=== PATIENT | male | born 1990 | race Caucasian/White ===

== ENCOUNTER 2022-01-18 10:28 | Emergency (ER) | payer OTHER, MEDICAID, SELFPAY ==
[2022-01-18] VITALS (11 sets, daily range): BP systolic 116–132; BP diastolic 53–68; PULSE 80–97; RESP 15–28; TEMP 36.7; O2SAT 98–100; BMI 20.9
--- NOTE | 2022-01-18 13:05 | DI.RAD.S_ITS ---
PROCEDURE: XR CHEST 1V INDICATIONS: chest pain TECHNIQUE: One view of the chest was acquired. COMPARISON: [facility], , CHEST 2 VIEW, 08/02/2010, 12:38. FINDINGS: Surgical changes and devices: None. Lungs and pleura: Lungs are clear. No pleural effusions or pneumothorax. Mediastinum: Mediastinal contours appear normal. Heart size is normal. Bones and chest wall: No suspicious bony lesions. Overlying soft tissues appear unremarkable. IMPRESSION: No acute process. Dictated by: Mamadou Murillo M.D. on 01/18/2022 at 13:14 Approved by: Mamadou Murillo M.D. on 01/18/2022 at 13:15
[2022-01-18] MEDS: NICOTINE 21 MG PATCH TOP (13:34)
--- NOTE | 2022-01-18 14:12 | PC.NURSE ---
IV placed, but not enough blood for labs. Called lab to get more blood, but patient declining and asking for IV fluids first. Advised him that physician would need to see him first and he states he will just wait for the doctor. He states he feels he is very dehydrated and hasn't been drinking water. He is currently eating a sandwich that his grandmother got him. Asked him if he is nauseous and he states no. Gave him a cup of water and encouraged him to drink.
--- NOTE | 2022-01-18 14:55 | ED_ITS ---
HPI - Chest Pain General Chief Complaint: Chest Pain Stated Complaint: L Foot pain/swelling. Chest pain Time Seen by Provider: 01/18/22 13:41 Source: patient Mode of arrival: Ambulatory Limitations: no limitations History of Present Illness HPI narrative: This is a 31-year-old male with history of IV drug abuse, prior endocarditis, hepatitis-C, asthma and bipolar disorder. Patient states he had an injury to his left foot at some time unclear about the timing. He was at [facility] he states he left he initially is very reluctant to share whether he left Against Medical Advice or was discharged but states there was no plan in place. We are able to obtain records patient was had an MRI that shows no features of osteomyelitis but did show a small subcutaneous abscess with stress fracture and ligamentous injury that appeared old. Patient denies fevers, denies chills, he currently denies chest pain, shortness of breath, no nausea or vomiting, no other GI or urinary symptoms. Patient does answer questions but is not particularly forthcoming. He denies medical issues. He denies needing or supposed to take any medications. States he had surgery on his hand. States he has used IV drugs remotely, initially denies any illicit substances but then states he is used methamphetamines. He does smoke tobacco. States uses alcohol but denies frequent or heavy use. Patient states he left the hospital because he did not want to be there anymore. He came here because he thinks it is a better hospital but he is never been here before. When we discussed what brought him to the area he states he knows people locally. He defers meeting with our sr. social media & mobile manager today. Related Data Previous Rx's Medication Instructions Recorded Fluticasone Propionate (FLONASE) 1 spray intranasal QDAY ##1 03/29/11 fluticasone propionate 110 1 puff INH BIDRT ##1 03/29/11 mcg/actuation HFA aerosol inhaler (Flovent HFA) citalopram 20 mg tablet (Celexa) 40 mg PO QDAY ##60 04/12/11 albuterol sulfate 90 mcg/actuation 0.09 mg IH Q4H ##1 09/20/11 aerosol inhaler (Ventolin HFA) Allergies Allergy/AdvReac Type Severity Reaction Status Date / Time cefazolin [From Anc] Allergy Hives Verified 01/18/22 13:21 codeine Allergy Rash Verified 01/18/22 13:27 methamphetamine Allergy Verified 01/18/22 13:27 morphine Allergy Hallucinati Verified 01/18/22 13:27 ng shrimp Allergy Hives Verified 01/18/22 13:27 walnut Allergy Verified 01/18/22 13:27 hydrocodone AdvReac Vomiting Verified 01/18/22 13:27 Review of Systems Review of Systems ROS Unobtainable: All systems reviewed & are unremarkable except as noted in HPI and below Patient History Social History Smoking Status: Current every day smoker Smoking Status: Current every day smoker tobacco type: cigarettes Substance Use Type: opiates Exam Narrative Exam Narrative: GEN: Thin slightly disheveled male, alert and oriented x 3, patient appears to be in mild distress. HEENT: Atraumatic, pupils are equal round reactive to light, extraocular movements are intact, nares are clear, moist mucous membranes. HEART: Regular rate and rhythm without murmur, clicks, rubs. Pulses are equal in upper and lower extremities LUNGS:Lungs clear to auscultation, no wheezes, rales, crackles, chest moves symmetrically, no tachypnea accessory muscle use ABD:bowel sounds normal, soft, non-tender, no guarding, rebound, rigidity, no masses noted, no hepatosplenomegaly :No CVA tenderness MSCL: Non-tender, no muscle atrophy, muscles strength 5/5 upper and lower extremities, full range of motion NEURO:CN 2-12 intact, sensation normal SKIN: Patient has some mild erythema over the great toe and follow-up the foot on the left. No fluctuance, slightly warm, there is no fluid collection easily palpable. Patient his mildly tender to touch. Cap refills less than 2 seconds bilateral lower extremities. With 2+ dorsalis pedis bilaterally. Has some small abrasions that do not appear infected over the dorsum of the foot. Patient has normal sensation throughout. Initial Vital Signs Initial Vital Signs: Vital Signs Temperature 98.1 F 01/18/22 10:51 Pulse Rate 85 01/18/22 10:51 Respiratory Rate 20 01/18/22 10:51 Blood Pressure 118/56 L 01/18/22 10:51 Pulse Oximetry 98 01/18/22 10:51 Oxygen Delivery Method 01/18/22 10:51 Course Orders Ordered: ED Orders 01/18/22 13:05 XR chest 1V Stat EKG-12 Lead Stat 01/18/22 15:49 XR foot LT min 3V Stat 01/18/22 16:35 CBC Auto Diff [Complete Blood Count AUTO DIFF] Stat CMP [Comprehensive Metabolic Panel] Stat CRP [C-Reactive Protein Quant] Stat ESR [Erythrocyte Sedimentation Rate] Stat Lactate (Lactic Acid) Stat Lipase Stat MAG [Magnesium] Stat Procalcitonin Stat 01/18/22 16:42 Blood Culture Stat Discontinued Medications Sodium Chloride (Normal Saline 0.9%) 1,000 mls @ 1,000 mls/hr IV BOLUS ONE Stop: 01/18/22 16:14 Last Infusion: 01/18/22 17:42 Dose: 0 mls/hr Documented By: Admin: 01/18/22 15:16 Dose: 1,000 mls/hr Documented By: LUIS Vancomycin HCl/Dextrose (Vancomycin) 1,500 mg in 300 mls @ 200 mls/hr IV NOW ONE Stop: 01/18/22 17:18 Last Admin: 01/18/22 16:30 Dose: Not Given Documented By: ALLISON Nicotine (Nicotine 21 Mg Patch) 21 mg TOP NOW ONE Stop: 01/18/22 13:07 Last Admin: 01/18/22 13:34 Dose: 21 mg Documented By: LUIS Consultations Consultation #1: Dr. Meghann Arboleda, reviewed labs findings from today, patient's recent MRI findings and exam findings with patient's past medical history. She recommends oral antibiotics follow-up outpatient with them in the office for further treatment. Vital Signs Vital signs: Vital Signs - 8 hr 01/18/22 13:22 01/18/22 13:30 01/18/22 13:30 Pulse Rate 80 81 Respiratory Rate 27 H Blood Pressure 119/68 Pulse Oximetry 98 98 01/18/22 14:00 01/18/22 14:01 01/18/22 14:01 Pulse Rate 82 86 Respiratory Rate 27 H 24 Blood Pressure 117/61 Pulse Oximetry 99 99 01/18/22 14:30 01/18/22 15:00 01/18/22 15:00 Pulse Rate 86 90 Respiratory Rate 18 18 Blood Pressure 124/56 L Pulse Oximetry 100 99 01/18/22 16:38 01/18/22 15:30 01/18/22 15:30 Pulse Rate 97 H 89 Respiratory Rate 28 H Blood Pressure 132/66 Pulse Oximetry 99 01/18/22 16:00 01/18/22 16:00 01/18/22 16:30 Pulse Rate 91 H 86 Respiratory Rate 15 Blood Pressure 116/53 L Pulse Oximetry 98 98 MDM - Chest Pain Lab Data Result diagrams: 01/18/22 16:35 01/18/22 16:35 Labs: Lab Results 01/18/22 01/18/22 01/18/22 Range/Units 16:35 16:35 16:35 WBC 6.5 (4.5-11.0) X10^3/uL RBC 3.86 L (4.5-5.9) X10^6/uL Hgb 12.6 L (13.5-17.5) g/dL Hct 36.5 L (41-53) % MCV 94.5 (80-100) fL MCH 32.7 (26-34) PG MCHC 34.6 (30-36) % RDW 13.3 (11.6-14.8) % Plt Count 247 (150-400) X10^3/uL Neut % (Auto) 48.2 L (50-75) % Lymph % (Auto) 39.2 (25-40) % [place] % (Auto) 7.8 (3-14) % Eos % (Auto) 4.1 H (2-4) % Baso % (Auto) 0.7 (0-2) % Neut # (Auto) 3200 (0694-4405) /uL Lymph # (Auto) 2600 (5672-9590) /uL [place] # (Auto) 500 (0-900) /uL Eos # (Auto) 300 (0-450) /uL Baso # (Auto) 0 (0-100) /uL ESR 6 (0-15) MM/HR Sodium (137-145) mmol/L Potassium (3.4-5.1) mmol/L Chloride (98-107) mmol/L Carbon Dioxide (22-32) mmol/L BUN (9-20) mg/dL Creatinine (0.66-1.25) mg/dL Estimated GFR (>60) mL/min BUN/Creatinine Ratio (6-22) Glucose (70-100) mg/dL Lactate (0.7-2.1) mmol/L Calcium (8.4-10.2) mg/dL Magnesium (1.6-2.3) mg/dL Total Bilirubin (0.2-1.3) mg/dL AST (17-59) IU/L ALT (<50) IU/L Alkaline Phosphatase (38-126) U/L C-Reactive Protein 2.0 H (<1.0) mg/dL Total Protein (6.3-8.2) g/dL Albumin (3.5-5.0) g/dL Globulin (1.7-4.1) g/dL Albumin/Globulin Ratio (1.0-2.8) Lipase (23-300) U/L Procalcitonin 0.09 (<0.5) ng/mL 01/18/22 01/18/22 Range/Units 16:35 16:35 WBC (4.5-11.0) X10^3/uL RBC (4.5-5.9) X10^6/uL Hgb (13.5-17.5) g/dL Hct (41-53) % MCV (80-100) fL MCH (26-34) PG MCHC (30-36) % RDW (11.6-14.8) % Plt Count (150-400) X10^3/uL Neut % (Auto) (50-75) % Lymph % (Auto) (25-40) % [place] % (Auto) (3-14) % Eos % (Auto) (2-4) % Baso % (Auto) (0-2) % Neut # (Auto) (9502-1490) /uL Lymph # (Auto) (9288-0110) /uL [place] # (Auto) (0-900) /uL Eos # (Auto) (0-450) /uL Baso # (Auto) (0-100) /uL ESR (0-15) MM/HR Sodium 138 (137-145) mmol/L Potassium 3.6 (3.4-5.1) mmol/L Chloride 103 (98-107) mmol/L Carbon Dioxide 30 (22-32) mmol/L BUN 17 (9-20) mg/dL Creatinine 0.70 (0.66-1.25) mg/dL Estimated GFR > 60 (>60) mL/min BUN/Creatinine Ratio 24.3 H (6-22) Glucose 124 H (70-100) mg/dL Lactate 1.6 (0.7-2.1) mmol/L Calcium 7.9 L (8.4-10.2) mg/dL Magnesium 1.6 (1.6-2.3) mg/dL Total Bilirubin 0.2 (0.2-1.3) mg/dL AST 31 (17-59) IU/L ALT 23 (<50) IU/L Alkaline Phosphatase 76 (38-126) U/L C-Reactive Protein (<1.0) mg/dL Total Protein 6.1 L (6.3-8.2) g/dL Albumin 3.1 L (3.5-5.0) g/dL Globulin 3.0 (1.7-4.1) g/dL Albumin/Globulin Ratio 1.0 (1.0-2.8) Lipase 56 (23-300) U/L Procalcitonin (<0.5) ng/mL Imaging Data outside MRI foot: Radiologist's Impression: Date of MRI 01/16/22 @ [facility]. No signs of osteomyelitis but linear edema in the posterior process of the calcaneus near the lateral wall of the calcaneus and a subtle sclerotic line consistent with a small stress fracture in the calcaneus the fracture line is incomplete, chronic avulsive injury at the tip of the fibula and small rim enhancing fluid collection along the plantar aspect of the 2nd metatarsal in the subcutaneous fat measuring 7 x 7 x 10 mm consistent with a small subcutaneous abscess in the superficial soft tissues and small joint effusion at the great toe MTP, no findings of synovitis.? There are some chronic tears of the deep deltoid ligament and ATFL and CFL.? There is also increased fluid at the peroneal tendon sheath compatible with tenosynovitis. Extremity x-ray #1: Radiologist's Impression: [address] [address] XRay Report Signed Patient: David Avila MR#: [id number] : 1990 Acct:[id number] Age/Sex: 31 / M Date of Service: 01/18/22 Loc: ED Accession Number: [id number] ?? Procedure: XR foot LT min 3V Ordering Provider: Negrita Schreiber D.O. PROCEDURE:? XR FOOT LT MIN 3V ? INDICATIONS:? infection foot ? TECHNIQUE:? Three views of the foot were acquired.? ? COMPARISON:? None. ? FINDINGS:? ? Bones:? No fractures or dislocations.? No suspicious bony lesions.? ? Soft tissues:? No tibiotalar joint effusion.? Achilles tendon appears normal.? There is no radiodense foreign body or suspicious soft tissue gas. ? ? IMPRESSION:? Intact left foot. ? ? Dictated by: Miranda Mckeon M.D. on 01/18/2022 at 16:41 ? ? Approved by: Miranda Mckeon M.D. on 01/18/2022 at 16:42?? Chest x-ray: Radiologist's Impression: Close Foot X-Ray (Signed) Miranda Mckeon - 01/18/22 Chest X-Ray (Signed) Mamadou Murillo - 01/18/22 [facility]?[place] [address] XRay Report Signed Patient: David Avila MR#: [id number] : 1990 Acct:[id number] Age/Sex: 31 / M Date of Service: 01/18/22 Loc: ED Accession Number: [id number] ?? Procedure: XR chest 1V Ordering Provider: Negrita Schreiber D.O. PROCEDURE:? XR CHEST 1V ? INDICATIONS:? chest pain ? TECHNIQUE:? One view of the chest was acquired.? ? COMPARISON:? [facility], CHEST 2 VIEW, 08/02/2010, 12:38. ? FINDINGS:? ? Surgical changes and devices:? None.? ? Lungs and pleura:? Lungs are clear.? No pleural effusions or pneumothorax.? ? Mediastinum:? Mediastinal contours appear normal.? Heart size is normal.? ? Bones and chest wall:? No suspicious bony lesions.? Overlying soft tissues appear unremarkable.? ? IMPRESSION:? No acute process. ? ? Dictated by: Mamadou Murillo M.D. on 01/18/2022 at 13:14 ? ? Approved by: Mamadou Murillo M.D. on 01/18/2022 at 13:15?? ECG Data Attestation: I personally reviewed and interpreted this ECG as follows: Interpretation: Sinus rhythm rate 82 VT 142 QRS 96 QTC of 436. Patient has diffuse ST elevation in 2 3 AVF as well as Q-wave present. Patient has some mild elevation in lateral leads as well. No reciprocal changes appreciated. MDM Narrative Medical decision making narrative: This is a 31-year-old male with history of endocarditis, multiple hospital visits sounds like he may not have been fully treated. Was recently at [facility] yesterday left overnight Against Medical Advice had been receiving IV antibiotics. Patient had MRI of the foot which was negative for osteomyelitis but showed possible small subcutaneous abscess with stress fracture and some ligamentous change. Podiatry was being consulted but had not seen the patient when he left. Presents here he does not appear to be septic, patient refused lab work initially had chest x-ray, foot x-ray is a quick screening exam a lthough unlikely to supervisor policy change clerks. EKG shows some diffuse ST elevation and with his IV drug history and endocarditis history discussed with patient the necessity of obtaining blood work to evaluate CBC, ESR, CRP, troponin, lactate and procalcitonin. Patient is denying any chest pain or shortness of breath or other symptoms consistent with endocarditis. Labs overall reassuring although elevated CRP. Patient's MRI at outside facility in the last several days was negative for osteomyelitis showed a stress fracture and some ligamentous injuries but no other significant change. Discussed with our local orthopedic surgeon who recommends oral antibiotics and outpatient follow-up. Patient left Against Medical Advice prior to me discussing with the locall orthopedic surgeon and these recommendations were not able to be shared with them. Discharge Plan Departure Patient Disposition: Left Against Medical Advice Clinical Impression: Left against medical advice Prescriptions: No Action fluticasone propionate [Flovent HFA] 12 GM HFA aerosol inhaler 1 puff INH BIDRT Qty: 1 3RF Fluticasone Propionate (FLONASE) 1 spray Intranasal QDAY Qty: 1 3RF citalopram [Celexa] 20 MG tablet 40 mg PO QDAY Qty: 60 1RF albuterol sulfate [Ventolin HFA] 90 MCG/PUFF HFA aerosol inhaler 0.09 mg IH Q4H Qty: 1 3RF Stand Alone Forms: Against Medical Advice
[2022-01-18] MEDS: SODIUM CHLORIDE 0.9% 1,000 ML 1000 ML IV (15:16)
--- NOTE | 2022-01-18 15:49 | DI.RAD.S_ITS ---
PROCEDURE: XR FOOT LT MIN 3V INDICATIONS: infection foot TECHNIQUE: Three views of the foot were acquired. COMPARISON: None. FINDINGS: Bones: No fractures or dislocations. No suspicious bony lesions. Soft tissues: No tibiotalar joint effusion. Achilles tendon appears normal. There is no radiodense foreign body or suspicious soft tissue gas. IMPRESSION: Intact left foot. Dictated by: Miranda Mckeon M.D. on 01/18/2022 at 16:41 Approved by: Miranda Mckeon M.D. on 01/18/2022 at 16:42
[2022-01-18 16:57] LABS: Add Manual Diff / Slide Review NO; Basophils Absolute Auto 0 /uL (0-100); Basophils Percent Auto 0.7 % (0-2); Eosinophils Absolute Auto 300 /uL (0-450); Eosinophils Percent Auto 4.1 % (2-4); Hematocrit 36.5 % (41-53); Hemoglobin 12.6 g/dL (13.5-17.5); Lymphocytes Absolute Auto 2600 /uL (1100-4500); Lymphocytes Percent Auto 39.2 % (25-40); Mean Corpuscular HGB Conc 34.6 % (30-36); Mean Corpuscular Hemoglobin 32.7 PG (26-34); Mean Corpuscular Volume 94.5 fL (80-100); Monocytes Absolute Auto 500 /uL (0-900); Monocytes Percent Auto 7.8 % (3-14); Neutrophils Absolute Auto 3200 /uL (1500-7000); Neutrophils Percent Auto 48.2 % (50-75); Platelet Count 247 X10^3/uL (150-400); Red Blood Cell Count 3.86 X10^6/uL (4.5-5.9); Red Cell Distribution Width 13.3 % (11.6-14.8); White Blood Cell Count 6.5 X10^3/uL (4.5-11.0)
[2022-01-18 17:10] LABS: Lactate (Lactic Acid) 1.6 mmol/L (0.7-2.1)
[2022-01-18 17:12] LABS: Alanine Aminotransferase 23 IU/L (<50); Albumin 3.1 g/dL (3.5-5.0); Alkaline Phosphatase 76 U/L (38-126); Aspartate Aminotransferase 31 IU/L (17-59); BUN Creatinine Ratio 24.3 (6-22); Bilirubin Total 0.2 mg/dL (0.2-1.3); Blood Urea Nitrogen 17 mg/dL (9-20); Calcium 7.9 mg/dL (8.4-10.2); Carbon Dioxide 30 mmol/L (22-32); Chloride 103 mmol/L (98-107); Estimated Glomerular Filt Rate > 60 mL/min (>60); Glucose 124 mg/dL (70-100); HEMOLYSIS 16 (0-50); Lipase 56 U/L (23-300); Magnesium 1.6 mg/dL (1.6-2.3); Potassium 3.6 mmol/L (3.4-5.1); Sodium 138 mmol/L (137-145); Total Protein 6.1 g/dL (6.3-8.2)
[2022-01-18 17:21] LABS: Erythrocyte Sedimentation Rate 6 MM/HR (0-15)
[2022-01-18 17:27] LABS: Procalcitonin 0.09 ng/mL (<0.5)
== END 2022-01-18 17:37 | disposition left against medical advice (07) ==
PROVIDERS: Emergency Provider Emergency Medicine
DX: M79.672 Pain in left foot (principal); R07.9 Chest pain, unspecified; R79.89 Other specified abnormal findings of blood chemistry; L03.116 Cellulitis of left lower limb
CPT/HCPCS: 36415; 71045; 73630; 80053; 83605; 83690; 83735; 84145; 85025; 85651; 86140; 87040; 93005; 99283; 99284

== ENCOUNTER 2022-01-18 17:50 | Emergency (ER) | payer OTHER, MEDICAID, SELFPAY ==
[2022-01-18 19:07] VITALS: BP 118/66; PULSE 90; RESP 20; TEMP 36.9; O2SAT 98; BMI 20.7
--- NOTE | 2022-01-18 19:12 | PC.NURSE ---
called patient for triage. he left and apparently came back. said he needed fresh air . found patient sleeping on couch.
--- NOTE | 2022-01-18 20:49 | ED.RECABL ---
HPI - Recheck/Abnormal Lab/Rx General Chief Complaint: Recheck/Abnormal Lab/Rx Stated Complaint: INFECTION OF LEFT FOOT Time Seen by Provider: 01/18/22 20:47 Source: patient Mode of arrival: Ambulatory History of Present Illness HPI narrative: Patient is a 31-year-old male who was seen in the emergency department earlier today. Has had a fairly extensive workup recently for concerns of a left foot infection. Please see the note from earlier today for complete synopsis of this. Was an MRI that was reviewed is his visit earlier today which did not show any signs of osteomyelitis. A discussion was had with the emergency provider at that time with Orthopedics and the decision was made to start the patient on antibiotics and have him follow-up as an outpatient. Prior to this discussion with the patient he did elope from that visit. There was no discussion about the plan and he was not given any antibiotics. He returns to the emergency department for continued evaluation and treatment. There has been no changes in his health since he was seen earlier today. Related Data Previous Rx's Medication Instructions Recorded Fluticasone Propionate (FLONASE) 1 spray intranasal QDAY ##1 03/29/11 fluticasone propionate 110 1 puff INH BIDRT ##1 03/29/11 mcg/actuation HFA aerosol inhaler (Flovent HFA) citalopram 20 mg tablet (Celexa) 40 mg PO QDAY ##60 04/12/11 albuterol sulfate 90 mcg/actuation 0.09 mg IH Q4H ##1 09/20/11 aerosol inhaler (Ventolin HFA) doxycycline hyclate 100 mg tablet 100 mg PO BID 10 days #20 tabs 01/18/22 Allergies Allergy/AdvReac Type Severity Reaction Status Date / Time cefazolin [From Anc] Allergy Hives Verified 01/18/22 13:21 codeine Allergy Rash Verified 01/18/22 13:27 methamphetamine Allergy Verified 01/18/22 13:27 morphine Allergy Hallucinati Verified 01/18/22 13:27 ng shrimp Allergy Hives Verified 01/18/22 13:27 walnut Allergy Verified 01/18/22 13:27 hydrocodone AdvReac Vomiting Verified 01/18/22 13:27 Review of Systems Constitutional Constitutional: Reports system reviewed and no additional complaints, except as documented Cardiovascular Cardiovascular: Reports system reviewed and no additional complaints, except as documented Musculoskeletal Musculoskeletal: Reports system reviewed and no additional complaints, except as documented Integumentary/Breasts Skin/Breast: Reports system reviewed and no additional complaints, except as documented Neurologic Neurologic: Reports system reviewed and no additional complaints, except as documented Patient History Social History Smoking Status: Current every day smoker Smoking Status: Current every day smoker tobacco type: cigarettes Substance Use Type: opiates Exam Initial Vital Signs Initial Vital Signs: Vital Signs Temperature 98.5 F 01/18/22 19:07 Pulse Rate 90 01/18/22 19:07 Respiratory Rate 20 01/18/22 19:07 Blood Pressure 118/66 01/18/22 19:07 Pulse Oximetry 98 01/18/22 19:07 Oxygen Delivery Method 01/18/22 19:07 Const General: disheveled HENMT Head: normal to inspection and normocephalic Resp Effort & Inspection: normal respiratory effort Cardio Pulses: dorsalis pedis present on the left Skin Other: Patient has mild swelling of the left foot with some areas of crusting. Very mild erythema. No ulcerations. Neuro General: patient alert, patient awake and moves all extremities Course Orders Ordered: Discontinued Medications Doxycycline Hyclate (Doxycycline Hyclate 100 Mg Tablet) 100 mg PO NOW ONE Stop: 01/18/22 20:51 Last Admin: 01/18/22 20:56 Dose: 100 mg Documented By: Vital Signs Vital signs: Vital Signs - 8 hr 01/18/22 21:10 Pulse Rate 86 Respiratory Rate 19 Blood Pressure 127/78 Pulse Oximetry 99 Oxygen Delivery Method Room Air MDM - Recheck/Abnormal Lab/Rx MDM Narrative Medical decision making narrative: No radiologic studies nor labs required during this visit as they were performed earlier in the day. Patient was given a dose of doxycycline here in the ER. He was sent home with a prescription for doxycycline was sent to the pharmacy of his choice. He was instructed that he needed to picker operator this medication and start taking it as directed. He was also given follow-up instructions for orthopedics. He expressed understanding that he needed to follow-up with orthopedics. He was given return precautions. He expressed understanding and agreement. Discharge Plan Departure Patient Disposition: Home Clinical Impression: Cellulitis Instructions: DI for Cellulitis -- Adult Activity Restrictions/Additional Instructions: It is important that you start taking the antibiotics as directed. It was electronically transmitted to [facility] here in [place]. Your next dose will be Tuesday01/19/22 in the morning. Please take it as directed. Also contact the orthopedic doctors at the number provided below is you do need follow-up. Return to the emergency department for any new or worsening symptoms. Prescriptions: New doxycycline hyclate 100 mg tablet 100 mg PO BID 10 Days Qty: 20 0RF No Action fluticasone propionate [Flovent HFA] 12 GM HFA aerosol inhaler 1 puff INH BIDRT Qty: 1 3RF Fluticasone Propionate (FLONASE) 1 spray Intranasal QDAY Qty: 1 3RF citalopram [Celexa] 20 MG tablet 40 mg PO QDAY Qty: 60 1RF albuterol sulfate [Ventolin HFA] 90 MCG/PUFF HFA aerosol inhaler 0.09 mg IH Q4H Qty: 1 3RF Referrals: Meghann Arboleda MD [Physician] - Visit Report Forms: Patient Portal/API
[2022-01-18] MEDS: DOXYCYCLINE HYCLATE 100 MG TABLET PO (20:56)
[2022-01-18 21:10] VITALS: BP 127/78; PULSE 86; RESP 19; O2SAT 99
== END 2022-01-18 21:00 | disposition home or self-care (01) ==
PROVIDERS: Emergency Provider Emergency Medicine
DX: L03.116 Cellulitis of left lower limb (principal)
CPT/HCPCS: 99283

== ENCOUNTER 2023-10-25 03:41 | Emergency (ER) | payer OTHER, MEDICAID, SELFPAY ==
[2023-10-25 03:41] VITALS: BP 134/71; PULSE 102; RESP 18; TEMP 37.3; O2SAT 99
--- NOTE | 2023-10-25 03:50 | ED.GENADULT ---
HPI - General Adult General Chief complaint: Weakness Stated complaint: Dehydration Time Seen by Provider: 10/25/23 03:43 History of Present Illness HPI narrative: 33-year-old gentleman with a history of opioid use disorder at 1 point was on methadone maintenance and has relapsed. His drug of choice is opiates but also uses methadone. Has a history of endocarditis back in November of 2022. He states that he relapsed at 1 point and can not be clear on dates. He currently does not have stable housing. Brought in by medics saying that he ?wants to get his medical shit cleaned up to go to clean and sober housing in a few hours?. It sounds like he has recently spent time in long-term and has all of his legal issues at this point sort it out. He is tangential, non focused not clear on what he actually wants, which hospital he is at or where he is planning to go. He states that he wanted to ?come up this way? and go to clean and sober housing ?here?. He has no specific plan and certainly does not have a definitive idea of where he would like to be. He has not complaining of fevers or chills. He complains that his feet are sore due to chronically being wet and macerated. Was seen at [facility] yesterday with that as his primary complaint. He was seen in [place] in [place] on October 16 for opioid use withdrawal and detox. He feels that he is dehydrated because he does not want to drink any water and was requesting IV fluids and antibiotics. He is not complaining of headache, cough, palpitations. Related Data Previous Rx's Medication Instructions Recorded Fluticasone Propionate (FLONASE) 1 spray intranasal QDAY ##1 03/29/11 fluticasone propionate 110 1 puff INH BIDRT ##1 03/29/11 mcg/actuation HFA aerosol inhaler (Flovent HFA) citalopram 20 mg tablet (Celexa) 40 mg (2 x 20 mg) PO QDAY ##60 04/12/11 albuterol sulfate 90 mcg/actuation 0.09 mg IH Q4H ##1 09/20/11 aerosol inhaler (Ventolin HFA) Allergies Allergy/AdvReac Type Severity Reaction Status Date / Time cefazolin [From Anc] Allergy Hives Verified 01/18/22 13:21 codeine Allergy Rash Verified 01/18/22 13:27 methamphetamine Allergy Verified 01/18/22 13:27 morphine Allergy Hallucinati Verified 01/18/22 13:27 ng shrimp Allergy Hives Verified 01/18/22 13:27 walnut Allergy Verified 01/18/22 13:27 hydrocodone AdvReac Vomiting Verified 01/18/22 13:27 Review of Systems Review of Systems Narrative: Pertinent positive and negative findings as per HPI Patient History Social History Smoking Status: Current every day smoker Smoking Status: Current every day smoker tobacco type: cigarettes Substance Use Type: opiates Exam Initial Vital Signs Initial Vital Signs: Vital Signs Temperature 99.2 F 10/25/23 03:41 Pulse Rate 102 H 10/25/23 03:41 Respiratory Rate 18 10/25/23 03:41 Blood Pressure 134/71 10/25/23 03:41 Pulse Oximetry 99 10/25/23 03:41 Oxygen Delivery Method Room Air 10/25/23 03:41 General: Chronically ill-appearing, almost cachectic HEENT: Moist mucous membranes, sunburn back of his neck Neck: No JVD, supple Respiratory: Lungs with bibasilar crackles. Cardiac: No murmurs with careful auscultation. He is slightly tachycardic Abdomen: Soft, nontender, , no flank pain Skin: Pale, bruises in various stages of healing, track majano Neurologic: Grossly neurologically intact with no obvious asymmetries or abnormalities Extremities: Feet with macerated bottoms of the feet, no obvious infection, seems to be improving. Dry socks were given Psych: Poor insight, poor overall understanding Course Vital Signs Vital signs: Vital Signs - 8 hr 10/25/23 03:41 Temperature 99.2 F Pulse Rate 102 H Respiratory Rate 18 Blood Pressure 134/71 Pulse Oximetry 99 Oxygen Delivery Method Room Air Medical Decision Making [facility] Narrative Medical decision making narrative: CC: ?I want IV fluids and antibiotics? Complicating co-morbidities: Currently appears to be intoxicated, poor overall insight into health. Expecting go to clean and sober housing after he sees his kids this morning. Completely unrealistic expectations. Believes his kids are in [place] but can not completely confirm this. Has no specific goal for clean and sober housing other than the idea Data collected from: patient Social determinants of health that may influence the patients condition: Polysubstance use, currently on housed Medical records reviewed: [facility] reviewed with multiple ER visits summarized in the HPI Differential considered: Opioid intoxication, opioid withdrawal, methamphetamine use, cachexia, infection Exam documented above, pertinent findings include: Patient is cachectic, chronically ill-appearing, no murmurs appreciated, no obvious cellulitis, maceration to his feet that does seem to be slightly improving with dry socks. He is disorganized in his thinking in his speech, speech is not pressured, poor eye contact overall Discussion: 33-year-old gentleman who has no place to sleep tonight requesting ?IV fluids and IV antibiotics? no recent fevers, currently homeless, plan is unclear and he is not interested in inpatient detox currently. He is able to eat and drink and is offered a snack as well as water and juice. At this point there is no medical indication for additional workup. Discussed the option inpatient detox in multiple different ways and he is interested only in ?getting to see my kids in a couple of hours and getting to clean and sober housing without seeming to understand the detox and getting to sober prior to both of those events. Discharge Plan Departure Patient Disposition: Home Clinical Impression: Polysubstance (including opioids) dependence, daily use Activity Restrictions/Additional Instructions: I appreciate very much that you want to get to see your children and go to clean and sober housing. I think this is a wonderful goal. Unfortunately, you have a few more steps in terms of getting to sobriety and through recovery to be able to achieve that goal. You had mentioned seeking care in [place]. They do have a inpatient detox facility called [facility] [address], [place] [address] They do not have space availalbe tonight, but I would encourage you to follow up in contact them tomorrow. [facility] [address], [place] [address] [phone] [facility], clean and sober living [address], [place] - [phone] In the emergency room tonight you are given water juice a sandwich. Dry socks. At this time there is no medical indication for additional workup. I wish you luck in getting to sober so that you can spend more time with your children. Prescriptions: No Action fluticasone propionate [Flovent HFA] 12 GM HFA aerosol inhaler 1 puff INH BIDRT Qty: 1 3RF Fluticasone Propionate (FLONASE) 1 spray Intranasal QDAY Qty: 1 3RF citalopram [Celexa] 20 MG tablet 40 mg PO QDAY Qty: 60 1RF albuterol sulfate [Ventolin HFA] 90 MCG/PUFF HFA aerosol inhaler 0.09 mg IH Q4H Qty: 1 3RF Stand Alone Forms: Patient Portal/API
--- NOTE | 2023-10-25 03:54 | PC.NURSE ---
Pt given juice and crackers, water and turkey sandwich. Pt eating and drinking with no issues.
[2023-10-25 04:04] VITALS: BMI 25.8
[2023-10-25 04:46] VITALS: BP 135/78; PULSE 85; RESP 19; TEMP 36.4; O2SAT 98
== END 2023-10-25 04:35 | disposition home or self-care (01) ==
PROVIDERS: Emergency Provider Emergency Medicine
DX: F11.20 Opioid dependence, uncomplicated (principal)
CPT/HCPCS: 99281

== ENCOUNTER 2023-10-25 08:42 | Emergency (ER) | payer OTHER, MEDICAID, SELFPAY ==
[2023-10-25 08:56] VITALS: BP 118/67; PULSE 90; RESP 16; TEMP 37.1; O2SAT 99
--- NOTE | 2023-10-25 09:03 | ED_ITS ---
HPI - Skin/Abscess/Foreign Bdy General Stated complaint: Pain in both feet Time Seen by Provider: 10/25/23 08:44 History of Present Illness HPI narrative: 33-year-old male with history of polysubstance abuse presents for evaluation of bilateral foot pain. Seen less than 12 hours ago in the emergency department for help with getting sober and living situations. He was medically evaluated and discharged with resources and clean socks. Patient is seen by myself earlier today in the cafeteria getting coffee. He checks in today for bilateral foot pain. He states that his feet are damp and he was requesting a cream. Related Data Previous Rx's Medication Instructions Recorded Fluticasone Propionate (FLONASE) 1 spray intranasal QDAY ##1 03/29/11 fluticasone propionate 110 1 puff INH BIDRT ##1 03/29/11 mcg/actuation HFA aerosol inhaler (Flovent HFA) citalopram 20 mg tablet (Celexa) 40 mg (2 x 20 mg) PO QDAY ##60 04/12/11 albuterol sulfate 90 mcg/actuation 0.09 mg IH Q4H ##1 09/20/11 aerosol inhaler (Ventolin HFA) Allergies Allergy/AdvReac Type Severity Reaction Status Date / Time cefazolin [From Anc] Allergy Hives Verified 01/18/22 13:21 codeine Allergy Rash Verified 01/18/22 13:27 methamphetamine Allergy Verified 01/18/22 13:27 morphine Allergy Hallucinati Verified 01/18/22 13:27 ng shrimp Allergy Hives Verified 01/18/22 13:27 walnut Allergy Verified 01/18/22 13:27 hydrocodone AdvReac Vomiting Verified 01/18/22 13:27 Patient History Social History Smoking Status: Current every day smoker Smoking Status: Current every day smoker tobacco type: cigarettes Substance Use Type: opiates Exam Initial Vital Signs Initial Vital Signs: Const: Awake, alert, no acute distress, hygiene poor, disheveled, appears older than stated age MSK: Atraumatic, full range of motion, pulses equal Skin: bilateral feet with mild breakdown from moisture, no blisters, no rashes, no erythema Neuro: AO x3, CN II-XII grossly intact, moves all extremities MDM - Skin/Abscess/Foreign Bdy MDM Narrative Medical decision making narrative: 33-year-old male presenting for bilateral foot pain. Seen earlier this morning for similar. Also per record review seen at [facility] for chronically wet and macerated soles. Patient informed that he has already been evaluated for this complaint and no further workup is indicated. He was given several additional pairs of clean dry socks and advised to air his feet out when at rest Discharge Plan Departure Patient Disposition: Home Clinical Impression: Bilateral foot pain Instructions: Foot Care: Skin Care Activity Restrictions/Additional Instructions: Keep your feet clean and dry. He has been given extra pairs of socks to help keep your feet dry. Prescriptions: No Action fluticasone propionate [Flovent HFA] 12 GM HFA aerosol inhaler 1 puff INH BIDRT Qty: 1 3RF Fluticasone Propionate (FLONASE) 1 spray Intranasal QDAY Qty: 1 3RF citalopram [Celexa] 20 MG tablet 40 mg PO QDAY Qty: 60 1RF albuterol sulfate [Ventolin HFA] 90 MCG/PUFF HFA aerosol inhaler 0.09 mg IH Q4H Qty: 1 3RF Stand Alone Forms: Patient Portal/API
== END 2023-10-25 09:10 | disposition home or self-care (01) ==
PROVIDERS: Emergency Provider Emergency Medicine
DX: M79.672 Pain in left foot (principal); M79.671 Pain in right foot
CPT/HCPCS: 99281; 99282